=== PATIENT | female | born 1935 | race Caucasian/White ===

== ENCOUNTER 2019-03-26 08:38 | Inpatient (IN) | payer MEDICARE ==
[~2019-03-26] VITALS: Ht 154.9 cm; Wt 45.3 kg
[2019-03-26] MEDS ORDERED: ALEN70TA6 PO (09:02)
[2019-03-26] MEDS ORDERED: HYDROCHLOROTH12.5 MG PO (09:02)
[2019-03-26] MEDS ORDERED: ASPI-515 PO (09:02)
[2019-03-26] MEDS ORDERED: LOVA40TA2 PO (09:02)
[2019-03-26] MEDS ORDERED: SODIUM CHLORIDE 0.9% 1,000ML IVBOLUS ONE (09:30)
[2019-03-26] MEDS ORDERED: ACETAMINOPHEN 500 MG TABLET PO ONE (09:30)
[2019-03-26 09:55] LABS: BASOPHILS # (AUTO) 0.02 x10^3/uL (0-0.1); BASOPHILS % (AUTO) 0 % (0-1); EOSINOPHILS % (AUTO) 0 % (1-7); LYMPHOCYTES # (AUTO) 0.61 x10^3/uL (1-3.4); LYMPHOCYTES % (AUTO) 6 % (22-44); MD NO; MEAN CORPUSCULAR HEMOGLOBIN 31.9 pg (27.0-34.8); MEAN CORPUSCULAR HGB CONC 32.7 g/dL (32.4-35.8); MEAN CORPUSCULAR VOLUME 97.7 fL (80-100); MEAN PLATELET VOLUME 10.2 fL (7.4-10.4); MONOCYTES # (AUTO) 0.91 x10^3/uL (0.2-0.8); MONOCYTES % (AUTO) 9 % (2-9); NEUTROPHILS # (AUTO) 8.94 x10^3/uL (1.8-6.8); NEUTROPHILS % (AUTO) 85 % (42-75); PLATELET COUNT 174 x10^3/uL (130-400); RED BLOOD COUNT 4.18 x10^6/uL (3.82-5.3); RED CELL DISTRIBUTION WIDTH 13.1 % (9.6-15.2)
[2019-03-26] MEDS ORDERED: AZITHROMYCIN 500 MG in SODIUM CHLORIDE 0.9% 250 ML IV ONE (10:00)
[2019-03-26] MEDS ORDERED: CEFTRIAXONE PMX 1GM/50ML 50 ML IV ONE (10:00)
[2019-03-26 10:03] LABS: INTERNATIONAL NORMALIZED RATIO 1.17 (0.93-1.1); PROTHROMBIN TIME 12.2 Seconds (9.6-11.5)
[2019-03-26] MEDS ORDERED: ACETAMINOPHEN 500 MG TABLET ONE (10:05)
[2019-03-26] MEDS ORDERED: CEFTRIAXONE PMX 1GM/50ML 50 ML ONE (10:06)
[2019-03-26 10:09] LABS: ALBUMIN 2.5 g/dL (3.4-5.0); CALCIUM 8.1 mg/dL (8.5-10.1); CHLORIDE 92 mmol/L (98-107)
--- NOTE | 2019-03-26 10:14 | NUR ---
Report from [place] for break. IV ABX AND FLUIDS HUNG AND INFUSING, PT MEDICATED WITH TYLENOL. GIL CONT TO MONITOR
[2019-03-26 10:18] LABS: ALANINE AMINOTRANSFERASE 36 U/L (12-78); ALKALINE PHOSPHATASE 64 U/L (45-117); BILIRUBIN,TOTAL 0.4 mg/dL (0.2-1.0); CREATININE 0.87 mg/dL (0.55-1.02); FREE T4 (FREE THYROXINE) 1.42 ng/dL (0.76-1.46); TOTAL PROTEIN 7.1 g/dL (6.4-8.2)
[2019-03-26 10:19] LABS: ANION GAP 12 mmol/L (5-15)
[2019-03-26] MEDS ORDERED: POTASSIUM CHLORIDE 40 MEQ in SODIUM CHLORIDE 0.9% 500 ML IV ONE ×2 (11:00→16:00)
--- NOTE | 2019-03-26 11:20 | NUR ---
REPORT CALLED, [facility] CRISTOPHER AT BEDSIDE TO ASSESS PT, PT TO BE TRANSPORTED VIA STRETCHER BY TECH TO ADMIT BED UPON MD COMPLETION OF ASSESSMENT
--- NOTE | 2019-03-26 11:28 | NUR ---
Son of patient contact [phone] Lorenza Engel
[2019-03-26 13:20] VITALS: BP 117/73
[2019-03-26] MEDS: ALENDRONATE 70 MG TABLET PO SCH (15:41)
[2019-03-26] MEDS: NS + 20MEQ KCL 1,000 ML IV SCH (15:41)
[2019-03-26] MEDS: HEPARIN 5,000 UNITS/ML, 1ML SQ SCH (15:42)
[2019-03-26 17:57] LABS: CULTURE INDICATED? YES; MICROSCOPIC INDICATED
[2019-03-26 19:07] VITALS: BP 120/71
[2019-03-26] MEDS ORDERED: LOVASTATIN 40 MG TABLET PO SCH (21:00)
[2019-03-27 00:10] VITALS: BP 135/76
[2019-03-27] MEDS: NS + 20MEQ KCL 1,000 ML IV SCH ×2 (04:00→07:21)
[2019-03-27] MEDS ORDERED: MELA5CAP PO (04:01)
[2019-03-27 04:47] LABS: BASOPHILS # (AUTO) 0.01 x10^3/uL (0-0.1); BASOPHILS % (AUTO) 0 % (0-1); EOSINOPHILS % (AUTO) 0 % (1-7); LYMPHOCYTES # (AUTO) 0.93 x10^3/uL (1-3.4); LYMPHOCYTES % (AUTO) 11 % (22-44); MD NO; MEAN CORPUSCULAR HGB CONC 33.3 g/dL (32.4-35.8); MEAN CORPUSCULAR VOLUME 96.3 fL (80-100); MONOCYTES # (AUTO) 0.37 x10^3/uL (0.2-0.8); MONOCYTES % (AUTO) 4 % (2-9); NEUTROPHILS # (AUTO) 7.37 x10^3/uL (1.8-6.8); NEUTROPHILS % (AUTO) 85 % (42-75); PLATELET COUNT 163 x10^3/uL (130-400); RED BLOOD COUNT 3.81 x10^6/uL (3.82-5.3); RED CELL DISTRIBUTION WIDTH 13.4 % (9.6-15.2)
[2019-03-27 04:59] LABS: ANION GAP 8 mmol/L (5-15); CALCIUM 7.4 mg/dL (8.5-10.1); CHLORIDE 104 mmol/L (98-107); CREATININE 0.63 mg/dL (0.55-1.02)
[2019-03-27 07:20] VITALS: BP 127/71
[2019-03-27] MEDS: ALENDRONATE 70 MG TABLET PO SCH (07:21)
[2019-03-27] MEDS: HEPARIN 5,000 UNITS/ML, 1ML SQ SCH ×2 (07:22)
[2019-03-27] MEDS ORDERED: CEFTRIAXONE PMX 1GM/50ML 50 ML IV SCH (08:00)
[2019-03-27] MEDS ORDERED: HYDROCHLOROTHIAZIDE 12.5 MG CAPSULE PO SCH (09:00)
[2019-03-27] MEDS ORDERED: ASPIRIN 81 MG TABLET EC PO SCH (09:00)
[2019-03-27] MEDS ORDERED: AZITHROMYCIN 250 MG TABLET PO SCH (09:00)
[2019-03-27 13:26] VITALS: BP 121/67
[2019-03-27] MEDS ORDERED: AZIT250T89 PO (14:23)
== END 2019-03-27 16:05 | disposition home or self-care (01) | DRG 871 ==
LOC: ED 09:18 → EDIP 10:58 → 3NE 12:26
PROVIDERS: ADMIT Family Medicine; ATTEND Family Medicine
DX: A41.9 Sepsis, unspecified organism (principal); J18.9 Pneumonia, unspecified organism; E87.1 Hypo-osmolality and hyponatremia; J91.8 Pleural effusion in other conditions classified elsewhere; E78.00 Pure hypercholesterolemia, unspecified; E78.5 Hyperlipidemia, unspecified; E86.0 Dehydration; E87.6 Hypokalemia; I10 Essential (primary) hypertension; M81.0 Age-related osteoporosis without current pathological fracture; Z88.5 Allergy status to narcotic agent; Z90.710 Acquired absence of both cervix and uterus
CPT/HCPCS: 36415; 71045; 80048; 80053; 81001; 83605; 84145; 84439; 84443; 85025; 85610; 87040; 87086; 93005; G0378; J0456; J0696; J1644; J3480; J7030; J7040; J7050